=== PATIENT | female | born 1995 | race African-American/Black ===

== ENCOUNTER 2017-08-18 16:29 | Emergency (ER) | payer SELFPAY ==
[2017-08-18] MEDS ORDERED: ONDANSETRON HCL 4 MG TAB.RAPDIS PO ONE ×3 (17:01→19:01)
[2017-08-18] MEDS ORDERED: 0.9 % SODIUM CHLORIDE 1,000 ML IV ONE ×3 (17:01→17:50)
[2017-08-18] MEDS ORDERED: ONDANSETRON HCL 4 MG TAB.RAPDIS ONE (17:02)
--- NOTE | 2017-08-18 17:05 | ED Physician Documentation ---
General Adult - HISTORIAN Historian: patient - HPI Stated Complaint: N/V/D Chief Complaint: General Adult Additional Information: NVD since 0500 today. Thinks she had bad food at [employer] overnight, bu also has had abdominal pain left lower and periumbilical, for two days. Can't characterize. No urine output today. No treatment attempted except water adn gatorade. No other associated signs. - ROS CONST: denies: fever - PAST HX Past History: none Allergies/Adverse Reactions: Allergies Allergy/AdvReac Type Severity Reaction Status Date / Time Penicillins Allergy Verified 08/18/17 16:42 iv dye Allergy Uncoded 08/18/17 16:42 Home Medications: Ambulatory Orders Medication Instructions Recorded NK [NK] 10/25/13 - SOCIAL HX Smoking History: cigarettes - FAMILY HX Family History: No - VITAL SIGNS Vital Signs: Vital Signs Temp Pulse Resp BP Pulse Ox 97.2 F L 84 20 99/32 99 08/18/17 16:30 08/18/17 16:30 08/18/17 16:30 08/18/17 16:30 08/18/17 16:30 - REVIEWED ASSESSMENTS Nursing Assessment Reviewed: Yes Vitals Reviewed: Yes Progress - Progress Progress: better after zofran and 2 liters saline. Still has some abdominal discomfort. ED Results Lab/Radiology - Orders Orders: ED Orders Category Date Time Status Place IV Lock 1T Care 08/18/17 17:02 Ordered CBC/PLATELET/DIFF Routine Lab 08/18/17 Ordered CMP Routine Lab 08/18/17 Ordered UA [URINALYSIS] Routine Lab 08/18/17 Ordered NORMAL SALINE @ 1000 MLS/HR ( 1000ml BOLUS) Med 08/18/17 17:01 Ordered 0.9 % Sodium Chloride [Normal Saline] 1,000 ml IV Q1H Ondansetron HCl Rapdis [Zofran Odt] Med 08/18/17 17:01 Once 4 mg PO NOW ONE General Adult Physical Exam - PHYSICAL EXAM GENERAL APPEARANCE: moderate distress EENT: eye inspection normal, ENT inspection normal NECK: normal inspection, supple RESPIRATORY: no resp distress, breath sounds normal CVS: reg rate & rhythm, no murmur ABDOMEN: soft, normal bowel sounds, no distension, non-tender BACK: normal inspection, no CVA tenderness, other (no vertebral tenderness) SKIN: warm/dry, normal color NEURO: CN's nml as tested, motor nml, sensation nml, cognition normal Discharge Clincal Impression: Nausea vomiting and diarrhea Referrals: Primary Doctor,No [Primary Care Provider] - 2 Days Additional Instructions: Advance your diet very slowly Stick with sips of liquids tonight. Return to the ER if your condition worsens or if you cannot urinate for 6-8 hours. Condition: Fair Disposition: 01 HOME, SELF-CARE Decision to Admit: NO Decision Time: 18:55
[2017-08-18 17:12] LABS: BASOPHILS % 0.3 (0.0-1.5); EOSINOPHILS % 0.9 % (0.0-6.8); MEAN CORPUSCULAR HEMOGLOBIN 27.2 pg (28.0-34.0); MEAN CORPUSCULAR VOLUME 85.3 fl (80.0-100.0); MONOCYTES % 2.5 % (0.0-11.0); NEUTROPHILS # 13.5 # k/uL (1.4-7.7)
[2017-08-18 17:15] LABS: eGFR (African) > 60; eGFR (Non-African) > 60
[2017-08-18 19:52] VITALS: BP 123/65
[2017-08-18 20:40] LABS: APPEARANCE,URINE CLEAR (CLEAR); COLOR,URINE YELLOW (YELLOW); OCCULT BLOOD,URINE TRACE-INTACT (NEGATIVE); UROBILINOGEN URINE 0.2 Eu (0.2-1.0)
[2017-08-18 20:58] LABS: CANNABINOIDS NON NEGATIVE ng/mL (< 50); METHYLENEDIOXYMETHAMPHETAMINE NEGATIVE ng/mL (<500)
== END 2017-08-18 19:45 | disposition home or self-care (01) ==
LOC: ED 16:29
DX: R11.2 Nausea with vomiting, unspecified (principal); R19.7 Diarrhea, unspecified
CPT/HCPCS: 80053; 80320; 80377; 81002; 85025; A9270; J7030; 96360; 96361; 99284; G0480; G0481; S1016